=== PATIENT | male | born 1995 | race Caucasian/White ===

== ENCOUNTER 2020-12-25 22:07 | Emergency (ER) | payer SELFPAY ==
[2020-12-25 22:18] VITALS: BP 132/82; PULSE 73; RESP 18; TEMP 36.6; O2SAT 98; BMI 34.9
[2020-12-25 22:30] VITALS: BP 125/74; PULSE 61; RESP 17; O2SAT 95
--- NOTE | 2020-12-25 22:38 | HMH.EDGENADL ---
ED Disposition Clinical Impression: Strain of lumbar region Qualifiers: Encounter type: initial encounter Qualified Code(s): S39.012A - Strain of muscle, fascia and tendon of lower back, initial encounter Disposition: Home, Self-Care Condition on Discharge: Fair Instructions: DI for Low Back Pain Additional Instructions: You have been evaluated for low back pain, diagnosed with a lumbar strain. Please take anti-inflammatories on a schedule. Take Robaxin as needed at night for muscle spasms. Try to use heat, ice, stretching, strengthening exercises. Follow-up with your primary care doctor in 1 to 2 days. Return to the emergency department for any new or worsening symptoms, difficulty ambulating, difficulty urinating. Prescriptions: Ibuprofen [Ibuprofen 600mg Tablet] 600 mg PO Q6 #18 tab Transmission Status: Received by [facility] methocarbamoL [Robaxin 750mg Tab] 750 mg PO QID PRN #12 tab PRN Reason: Muscle Spasm Transmission Status: Received by [facility] Referrals: Ghulam Delgadillo [Primary Care Provider] - Forms: Work/School Release Time of Disposition: 23:38 - Critical Care Critical Care Time: No Attestation: On 12/25/20, the high probability of a clinically significant, sudden or life threatening deterioration of the following system(s) required my full and direct attention, intervention and personal management. The time I documented below is in addition to time spent performing reported procedures but includes the following listed in this critical care notation. Medical Decision Making - Medical Records Medical records reviewed: Yes: I reviewed the patient's medical records. - Dusty Inquiry Pt receiving controlled substance: No Vital Signs: 12/25/20 22:18 12/25/20 22:30 12/25/20 23:00 Temperature 97.8 F Temperature Source Oral Pulse Rate Pulse Rate [Right Brachial] 73 61 61 Respiratory Rate 18 17 17 Blood Pressure Blood Pressure [Right Arm] 132/82 125/74 121/70 Blood Pressure Mean [Right Arm] 98 91 87 Blood Pressure Source Blood Pressure Source [Right Arm] Automatic Cuff Automatic Cuff Automatic Cuff Blood Pressure Position Blood Pressure Position [Right Arm] Sitting Supine Supine 02 Sat by Pulse Oximetry 98 95 95 Oxygen Delivery Method Room Air Room Air Room Air 12/25/20 23:30 12/26/20 00:11 Temperature 98.2 F Temperature Source Oral Pulse Rate 71 Pulse Rate [Right Brachial] 61 Respiratory Rate 15 18 Blood Pressure 139/75 Blood Pressure [Right Arm] 130/75 Blood Pressure Mean [Right Arm] 93 Blood Pressure Source Automatic Cuff Blood Pressure Source [Right Arm] Automatic Cuff Blood Pressure Position Sitting Blood Pressure Position [Right Arm] Supine 02 Sat by Pulse Oximetry 96 Oxygen Delivery Method Room Air Room Air - Lab Data Lab Results 12/25/20 23:05: Urine Color Yellow, Urine Appearance Clear, Urine pH 6.0, Ur Specific [place] >= 1.030, Urine Protein Negative, Urine Glucose (UA) Negative, Urine Ketones Negative, Urine Blood Negative, Urine Nitrate Negative, Urine Bilirubin Negative, Urine Urobilinogen 0.2, Ur Leukocyte Esterase Negative, Urine WBC 3-5, Ur Squamous Epith Cells 3-5, Urine Bacteria 1+, Urine Mucus 1+ Orders (Tests/Meds): ED MEDICATIONS Discontinued Medications Generic Name Dose Route Start Last Admin Trade Name Freq PRN Reason Stop Dose Admin Cyclobenzaprine HCl 10 mg 12/25/20 23:41 12/25/20 23:50 Cyclobenzaprine 10mg Tablet PO 12/25/20 23:42 10 mg ONCE ONE Administration Ketorolac Tromethamine 15 mg 12/25/20 22:21 12/25/20 22:59 Ketorolac 30mg/Ml Vial IM 12/25/20 22:22 15 mg ONCE ONE Administration Lidocaine 1 each 12/25/20 23:45 12/25/20 23:50 Lidocaine 5% Transdermal Patch TP 01/24/21 23:44 1 each Q24H BILLY Administration Medical Decision Narrative: In summary this is a 25-year-old male presenting to the emergency department with right-sided low back
[2020-12-25 23:00] VITALS: BP 121/70; PULSE 61; RESP 17; O2SAT 95
[2020-12-25 23:07] LABS: Microscopic, Urine URINE MICROSCOPIC (MICROSCOPIC)
[2020-12-25 23:11] LABS: Appearance,Urine CLEAR (Clear); Bilirubin,Urine Negative (Negative); Blood, Urine Negative (Negative); Color,Urine YELLOW (Yellow); Glucose,Urine (UA) Negative (Negative); Ketones,Urine Negative (Negative); Leukocyte Esterase,Urine Negative (Negative); Nitrate,Urine Negative (Negative); Protein,Urine Negative (Negative); Specific Gravity, Urine >= 1.030 (1.005-1.030); Urobilinogen,Urine 0.2 EU/dl (0.2)
[2020-12-25 23:28] LABS: Bacteria,Urine 1+ /lpf; Mucus,Urine 1+ /lpf
[2020-12-25 23:30] VITALS: BP 130/75; PULSE 61; RESP 15; O2SAT 96
[2020-12-26 00:11] VITALS: BP 139/75; PULSE 71; RESP 18; TEMP 36.8; O2SAT 98
== END 2020-12-26 00:18 | disposition home or self-care (01) ==
PROVIDERS: Emergency Provider Emergency Medicine; PCP Pediatrics
DX: S39.012A Strain of muscle, fascia and tendon of lower back, initial encounter (principal); X50.0XXA Overexertion from strenuous movement or load, initial encounter; F17.210 Nicotine dependence, cigarettes, uncomplicated
CPT/HCPCS: 81001; 96372; 99283

== ENCOUNTER 2025-07-02 15:02 | Emergency (ER) | payer OTHER, SELFPAY ==
[2025-07-02 15:03] VITALS: BP 156/112; PULSE 88; RESP 18; TEMP 36.8; O2SAT 99; BMI 37.5
--- NOTE | 2025-07-02 15:08 | HMH.EDGENADL ---
Discharge Plan Disposition Patient Disposition: Home, Self-Care Condition: Good Prescriptions Prescriptions: No Action ibuprofen 600 MG tablet 600 mg PO Q6 Qty: 18 0RF methocarbamol 750 MG tablet 750 mg PO QID PRN (Reason: Muscle Spasm) Qty: 12 0RF Referrals Follow up/Referrals: Ghulam Delgadillo [Primary Care Provider, Medical] - See instructions Activity Restrictions/Add. Instructions Additional Instructions/Restrictions: Place both medications in your eye daily. Place the gentamicin in your eye twice daily for 5 days and put the erythromycin in your eye four times a day for 5 days. Follow-up with your eye doctor, or return to the ER for acute or worsening symptoms or vision changes. You may continue to be sensitive to light for the next couple days. Clinical Impressions Clinical Impression: Acute right eye pain, Abrasion, corneal Print Language Print Language: Turkmen Discharge ED Provider: Mona Gomez Adult HPI General Chief complaint: Eye Problems Stated complaint: Blurry Vision in eyes Time Seen by Provider: 07/02/25 15:06 History of Present Illness HPI narrative: Patient is an otherwise healthy 30-year-old male who presented to the emergency department with right thigh pain. Patient states that he slept in his contacts last night. Patient states that he woke up this morning with eye redness and pain patient has had some tearing and has had photophobia. Patient denies any drainage from the eye. Patient denies any other foreign bodies that he has noticed. Patient does wear contacts. Patient denies any changes in his vision. Related Data Previous Rx's ?Medication ?Instructions ?Recorded ibuprofen 600 mg tablet 600 mg PO Q6 #18 tabs 12/25/20 methocarbamol 750 mg tablet 750 mg PO QID PRN Muscle Spasm #12 12/25/20 tabs Allergies Allergy/AdvReac Type Severity Reaction Status Date / Time No Known Allergies Allergy Verified 09/20/19 19:06 [facility] Disclaimer: The information contained in this section may have been updated after the patient was seen, as this information can be updated by other users. Social History Smoking Status: Current every day smoker alcohol intake: never substance use type: denies use current occupational status: employed Travel in the last 8 weeks?: None household members: family housing: house Have you lived/traveled outside [place] in past 30 days?: No Contact w/someone who lives/traveled outside [place] past 30 days?: No Exposure to someone with infectious disease in past 14 days?: No Do you have a fever (greater than 100.4 F or 38 C)?: No Have you tested positive for COVID-19?: No Exposed to someone with COVID-19 in past 14 days?: No Do you have a sore throat?: No Do you have a cough?: No Do you have any weakness?: No Do you have any diarrhea?: No Are you experiencing any unusual bleeding?: No Do you have any muscle aches/pain?: No Do you have any abdominal pain?: No Are you experiencing loss of taste or smell?: No Other Medical History Have you received the Flu Vaccine for this season: No Have you received the Pneumonia Vaccine: No ROS Obtained: Yes All systems reviewed & no additional complaints except as documented and Yes Systems reviewed as appropriate & no additional complaints except as documented Physical Exam General General appearance: alert and in no apparent distress Head Head exam: atraumatic, normocephalic and normal inspection Eye Eye exam: Present normal appearance, PERRL, EOMI, conjunctival redness and other (R eye with scleral redness, no drainage, no obvious FB. Fluorescein exam with corneal uptake, no herpetic lesions, no ulcer. ); Absent scleral icterus ENT ENT exam: Present normal exam and normal external ear exam Neck Neck exam: Present normal inspection and full ROM Chest Chest inspection: Present normal inspection and symmetric chest wall rise Respiratory Respiratory exam: Present normal lung sounds bilaterally; Absent respiratory distress or wheezes Cardiovascular Cardiovascular exam: Present regular rate, normal rhythm and normal heart sounds Abdominal Exam Abdominal exam: Present soft and distention; Absent tenderness, guarding or rebound Extremities Exam Extremities exam: Present normal inspection and full ROM Back Exam Back exam: Present normal inspection and full ROM Neurological Exam Neurological exam: Present alert and oriented X3 Psychiatric Psychiatric exam: Present normal affect and normal mood Skin Skin exam: Present warm and dry Medical Decision Making Medical Records Medical records reviewed: Yes I reviewed the patient's medical records. Screening: Per USPSTF and CDC recommendations, given the prevalence of disease in our region, it is our hospital?s policy to screen for HIV and viral Hepatitis for all patients aged 18 and over and those with ongoing risk factors. Dusty Inquiry Pt receiving controlled substance: No Vital Signs: 07/02/25 15:03 07/02/25 16:04 Temperature 98.2 F 98.2 F Temperature Source Oral Oral Pulse Rate 80 Pulse Rate [Radial] 88 Respiratory Rate 18 18 Blood Pressure 155/100 H Blood Pressure [Right Arm] 156/112 H Blood Pressure Mean [Right Arm] 126 Blood Pressure Source Automatic Cuff Blood Pressure Source [Right Arm] Automatic Cuff Blood Pressure Position Sitting Blood Pressure Position [Right Arm] Sitting 02 Sat by Pulse Oximetry 99 Oxygen Delivery Method Room Air Room Air Lab Data Lab results reviewed: Yes I reviewed the patient's lab results. Orders (Tests/Meds): ED MEDICATIONS Discontinued Medications Generic Name Dose Route Start Last Admin Trade Name Freq PRN Reason Stop Dose Admin Erythromycin 1 gm 07/02/25 15:50 07/02/25 15:59 Erythromycin Base 1 Gm Oint...G. OP 07/02/25 15:51 1 gm ONCE ONE Administration Erythromycin 1 gm 07/02/25 15:54 07/02/25 15:59 Erythromycin Base 1 Gm Oint...G. OP 07/02/25 15:55 1 gm ONCE ONE Administration Gentamicin Sulfate 5 ml 07/02/25 15:49 07/02/25 15:59 Gentamicin 0.3% Opth Geovanna 5ml OP 07/02/25 15:50 5 ml ONCE ONE Administration Medical Decision Narrative: Patient is an otherwise healthy 30-year-old male who presented to the emergency department with right eye pain and redness. Patient states that he slept in his contacts last night. Patient woke up with right eye pain and redness. Patient has had some tearing and photophobia. On exam, patient had scleral redness, exam was otherwise unremarkable. On arrival, patient was hemodynamically stable with unremarkable vital signs. Differential includes but not limited to: Corneal abrasion, corneal ulcer, foreign body, conjuctival hemorrhage, conjunctivitis, amongst others. Given patient's corneal uptake, patient likely with a corneal abrasion. Given the patient wears contacts that he was sent with gentamicin drops as well as erythromycin. Patient was advised to use cool compresses as needed for pain control. Patient was instructed to follow-up with ophthalmology if he had any changes in his vision or worsening symptoms. At this time, patient was felt to be appropriate and stable for discharge home. Critical Care Critical Care Time Critical Care Time: No
--- OUTSIDE RECORDS SUMMARY | 2025-07-02 15:22 | XMS_ITS | Patient Health Record ---
[facility] [address] [place] [id number] Care Team Providers Care Body Engineer Name Role Phone Tiff Guan Primary Care Provider [phone] Reason For Referral No Information Medications Medication SIG (Take, Route, Fr equency, Duration) Notes Start Date End Date Status Cefdinir 300 MG 1 cap(s) orally ever y 12 hours; Duration: 10 day(s) 03/06/2019 Activ e Moxifloxacin HCl 0.5 % 1 gtt in each aff ected eye 2 times a day; Duration: 7 day(s) 03/06/2019 Active Plan Of Treatment No Information Insurance Providers Payer Name Payer Address Payer Phone Subscriber Number Group Number Insured Name Patient Relationship to Insured Coverage Start Date Coverage End Date [facility] [address] [place] [phone] [id number] ALEKSANDER NAVARRO Self - patient is the insured Medical (General) History Surgical History Surgery Date(Month/Year) hand neck
--- NOTE | 2025-07-02 15:49 | PC.NURSE ---
Flushed patients eye at eye wash station for about 5 mins. and then tokk pt back to his room and advised Dr Gomez
[2025-07-02] MEDS: ERYTHROMYCIN BASE 1 GM OINT...G. OP ×2 (15:59)
[2025-07-02] MEDS: GENTAMICIN 0.3% OPTH SOL 5ML 5 ML OP (15:59)
[2025-07-02 16:04] VITALS: BP 155/100; PULSE 80; RESP 18; TEMP 36.8; O2SAT 100
== END 2025-07-02 16:04 | disposition home or self-care (01) ==
PROVIDERS: Emergency Provider Student in an Organized Health Care Education/Training Program; PCP Pediatrics
DX: S05.01XA Injury of conjunctiva and corneal abrasion without foreign body, right eye, initial encounter (principal); H57.11 Ocular pain, right eye; X58.XXXA Exposure to other specified factors, initial encounter
CPT/HCPCS: 99283